=== PATIENT | female | born 1965 | race Two or more races ===

== ENCOUNTER 2024-03-15 14:21 | Outpatient (AMB) | payer MEDICAID, SELFPAY ==
--- NOTE | 2024-03-15 14:36 | A.OFFVIS_ITS ---
Vital Signs 03/15/24 14:40 Height 4 ft 9 in Weight 198 lb 2 oz BMI 42.9 BP 142/90 H Blood Pressure Location Rt brachial Position Sitting Respiration 16 Pulse 74 Pulse Source Pulse Oximeter Pulse Oximetry (%) 96 Oxygen Delivery Method Room Air Intake Visit Reasons: 3/1LVM+Let BDF-Yalgtc-Cowbal Neuropathy-Conf Intake Note: Pt presents for new pt evaluation for severe neuropathy. [employer] Required: No Allergies No Known Allergies Allergy (Verified 03/15/24 14:37) Medication List - Last Reconciled 03/15/24 by Desiree Pandya MD albuterol sulfate 90 mcg/actuation 1 inh inhalation Q4-6H PRN anastrozole 1 mg PO DAILY gabapentin 600 mg PO TID oxycodone 10 mg PO Q8H PRN HPI Comments Details: 59y/o left handed female comes for an urgent visit for evaluation of neuropathy. she was diagnosed with Right breast cancer in Oct 2022 .she had surgery and started on chemo February 2023- Apr 2023 , radiation form Jun 2023 - Aug 2023. Chemo was AC-T (adriamycin, cyclophosphamide and taxol),after the second session she started having numbness ,tingling, burning pain in bilateral toes , feet and hands . she was trialed gabapentin , pregabalin and cymbalta and it does not help.she continued her chemo . she still has residual pain, burning , numbness paresthesias. she is oxycontin now. It is worse with rest and night. she denies back or neck pain PFSH Medical History (Updated 03/15/24 @ 15:05 by Desiree Pandya MD) Chemotherapy-induced neuropathy Ovarian cyst Depression Anxiety B12 deficiency Obesity Breast cancer Surgical History H/O total hysterectomy Hx of cholecystectomy Family History Father Diabetes Cancer Mother Diabetes Brain aneurysm Social History Alcohol intake: never Patient Tobacco Use Status: Never used Tobacco Use of substances other than those prescribed or required for medical reasons: No Physical Exam Vital Signs: Last Vital Signs Pulse 74 03/15/24 14:40 Resp 16 03/15/24 14:40 BP 142/90 H 03/15/24 14:40 Pulse Ox 96 03/15/24 14:40 Oxygen Delivery Method Room Air 03/15/24 14:40 BMI result Body Mass Index 42.9 Const General: cooperative and comfortable Nutritional Appearance: obese Orientation/consciousness: patient oriented x3 Eyes Pupils: Equal, round and reactive pupils present Neuro Other: decreased sensation - meghan below ankle and hands General: patient oriented x3, tone normal, moves all extremities and no focal motor deficits Cranial nerves: Yes Facial sensation intact/muscles of mastication intact, Yes Equal, round and reactive pupils present, Yes Bilaterally intact EOM present, Yes Nystagmus not present, Yes Normal facial strength present, Yes Midline tongue present, Yes Symmetric palate elevation present and Yes Ability to bilate rally elevate shoulders present Cognition (Neuro): normal cognition Gait exam (Neuro): Antalgic gait present Motor exam (neuro): 5/5 motor strength present throughout and Normal motor muscle tone present throughout Deep tendon reflexes (DTR's): Right triceps reflex intensity grade: 1+, Left triceps reflex intensity grade: 1+, Rt Biceps (C5, C6): 1+, Left biceps reflex intensity grade: 1+, Right brachioradialis reflex intensity grade: 0, Left brachioradialis reflex intensity grade: 0, Right patellar reflex intensity grade: 0 and Left patellar reflex intensity grade: 0 Assessment & Plan Assessment & Plan (1) Chemotherapy-induced neuropathy: Comment: AC-T induced with severe pain Code(s): G62.0 - Drug-induced polyneuropathy; T45.1X5A - Adverse effect of antineoplastic and immunosuppressive drugs, initial encounter Category: Medical Plan EMG NCS - LE I will check her Vit b12 B6 thiamine Vit D TSH etc Continue gabapentin 600mg tid I will trial her on venlafaxine XR 37.5 mg qhs Will consider trileptal , amitriptyline Refer to pain management Orders: Orders NE nerve conduction velocity Today G62.0 - Drug-induced polyneuropathy, T45.1X5A - Adverse effect of antineoplastic and immunosuppressive drugs, initial encounter Vitamin B12 and Folate Today G62.0 - Drug-induced polyneuropathy, T45.1X5A - Adverse effect of antineoplastic and immunosuppressive drugs, initial encounter TSH reflex Free T4 Today G62.0 - Drug-induced polyneuropathy, T45.1X5A - Adverse effect of antineoplastic and immunosuppressive drugs, initial encounter Vitamin B6 Today G62.0 - Drug-induced polyneuropathy, T45.1X5A - Adverse effect of antineoplastic and immunosuppressive drugs, initial encounter NE electromyogram (EMG) Today G62.0 - Drug-induced polyneuropathy, T45.1X5A - Adverse effect of antineoplastic and immunosuppressive drugs, initial encounter Referrals Pain Management Referral G62.0 - Drug-induced polyneuropathy, T45.1X5A - Adverse effect of antineoplastic and immunosuppressive drugs, initial encounter Medications: New venlafaxine ER (Effexor XR) 37.5 mg PO BEDTIME 30 caps 6RF Coding Level of Care Code New Pt Level 4 (47403) Diagnoses Chemotherapy-induced neuropathy G62.0; T45.1X5A
[2024-03-15 14:40] VITALS: BP 142/90; PULSE 74; RESP 16; O2SAT 96; BMI 42.9
== END 2024-03-15 15:17 | disposition home or self-care (01) ==
PROVIDERS: PCP Internal Medicine; Visit Provider Psychiatry & Neurology Neurology
DX: G62.0 Drug-induced polyneuropathy (principal); T45.1X5A Adverse effect of antineoplastic and immunosuppressive drugs, initial encounter
CPT/HCPCS: 99204

== ENCOUNTER → 2024-03-15 14:21 | Outpatient (BNVA) | payer MEDICAID, SELFPAY | PROVIDERS: PCP Internal Medicine; Visit Provider Psychiatry & Neurology Neurology | DX: G62.0 Drug-induced polyneuropathy (principal); T45.1X5A Adverse effect of antineoplastic and immunosuppressive drugs, initial encounter | CPT/HCPCS: 99202 ==

== ENCOUNTER 2024-03-25 13:01 | Outpatient (REF) | payer MEDICAID, SELFPAY ==
--- NOTE | 2024-03-25 13:04 | EMG_ITS ---
Chief complaint: History of right breast cancer status post chemo and radiation, started having numbness on her feet after 2nd course of chemo. Has hand numbness and pain as well. Reason for referral: Evaluate for neuropathy Referred by: Dr. Pandya Procedure done: Left upper extremity and right lower extremity Precautions and/or limitations: Difficulty tolerating the test. The limb temperature was monitored continuously and remained between 32-36 degrees C during the performance of the NCS. Nerve Conduction Studies Anti Sensory Summary Table ?Stim Site NR Onset (ms) Norm Onset (ms) Peak (ms) Norm Peak (ms) O-P Amp (?V) Norm O-P Amp Site1 Site2 Delta-0 (ms) Dist (cm) Gabriel (m/s) Norm Gabriel (m/s) Left Median Anti Sensory (2nd Digit) Wrist ? 1.9 3.0 <3.6 10.4 >10 Wrist 2nd Digit 1.9 14.0 74 Left Radial Anti Sensory (Thumb) Forearm ? 1.4 1.9 <3.1 18.3 Forearm Thumb 1.4 0.0 Left Sural Anti Sensory (Lat Mall) Calf NR <4.0 >5.0 Calf Lat Mall 14.0 Right Sural Anti Sensory (Lat Mall) Calf NR <4.0 >5.0 Calf Lat Mall 14.0 Left Ulnar Anti Sensory (5th Digit) Wrist ? 2.1 2.8 <3.7 16.4 >15.0 Wrist 5th Digit 2.1 14.0 67 Motor Summary Table ?Stim Site NR Onset (ms) Norm Onset (ms) O-P Amp (mV) Norm O-P Amp iAmp (mV) Amp (1st) (%) Site1 Site2 Delta-0 (ms) Dist (cm) Gabriel (m/s) Norm Gabriel (m/s) Left Median Motor (Abd Poll Brev) Wrist ? 2.8 <3.9 13.9 >4.5 15.5 100.0 Elbow Wrist 3.0 18.0 60 >45 Elbow ? 5.8 11.5 12.7 82.7 Right Peroneal Motor (Ext Dig Brev) Ankle ? 3.3 <4.0 2.1 >2.5 2.2 100.0 Ankle Ext Dig Brev 3.3 0.0 B Fib ? 8.8 1.2 1.1 57.1 B Fib Ankle 5.5 29.0 53 >40 Poplt ? 9.3 1.8 1.9 85.7 Poplt B Fib 0.5 5.0 100 >40 Right Tibial Motor (Abd Jane Brev) Ankle ? 3.8 <5 2.7 >2.5 3.4 100.0 Ankle Abd Jane Brev 3.8 0.0 Knee ? 9.9 1.3 1.7 48.1 Knee Ankle 6.1 35.0 57 >40 Left Ulnar Motor (Abd Dig Minimi) Wrist ? 2.4 <3.0 7.4 >5 8.9 100.0 B Elbow Wrist 2.6 16.5 63 >45 B Elbow ? 5.0 7.0 9.0 94.6 A Elbow B Elbow 1.3 10.0 77 >45 A Elbow ? 6.3 6.4 8.2 86.5 EMG ?Side Muscle Nerve Root Ins Act Fibs Psw Amp Dur Poly Recrt Int Pat Comment Right AbdHallucis MedPlantar S1-2 Incr 1+ 1+ Nml Nml 0 Nml Complete Right AntTibialis Dp Br Peron L4-5 Nml Nml Nml Nml Nml 0 Nml Complete Right PostTibialis Tibial L5, S1 Nml Nml Nml Nml Nml 0 Nml Complete Right MedGastroc Tibial S1-2 Nml Nml Nml Nml Nml 0 Nml Complete Right VastusMed Femoral L2-4 Nml Nml Nml Nml Nml 0 Nml Complete FINDINGS: Right peroneal nerve showed normal distal latency, small amplitude and normal conduction velocity. Left tibial nerve showed normal distal latency, borderline normal amplitude and normal conduction velocity. Bilateral sural nerves showed absent response. All other nerves tested on left upper extremity were within normal. Concentric needle EMG was performed in selected muscles of the right lower extremity. Study revealed signs of electric abnormalities as shown in the table above. Right AH showed increased insertional activity, PSWs and fibrillations. IMPRESSION: 1. This is an abnormal study. 2. There is electrodiagnostic evidence for distal sensorimotor axonal neuropathy. 3. There is no electrodiagnostic evidence for median neuropathy, ulnar neuropathy, brachial plexopathy, cervical radiculopathy, peroneal neuropathy, tibial neuropathy. lumbosacral plexopathy, or lumbar radiculopathy. Thank you for your kind referral. Beth Pena MD, [place] Board Certified, [place] Board [employer] and [employer] (ABPMR) Board Certified, [place] Board [employer] Electro[employer]ostic [employer] (ABEM) [place] [id number] [facility]
[2024-03-25 15:58] LABS: Folate 12.3 ng/mL (> or = 4.0); Vitamin B12 487 pg/mL (200-900)
[2024-03-31 15:18] LABS: Vitamin B6 2.7 ng/mL (2.1-21.7)
== END 2024-03-25 13:02 | disposition home or self-care (01) ==
LOC: HO.NEURO 13:01
PROVIDERS: PCP Internal Medicine; Visit Provider Psychiatry & Neurology Neurology
DX: G62.0 Drug-induced polyneuropathy (principal); T45.1X5A Adverse effect of antineoplastic and immunosuppressive drugs, initial encounter
CPT/HCPCS: 36415; 82607; 82746; 84207; 84443; 95886; 95911

== ENCOUNTER → 2024-03-25 13:04 | Outpatient (BNV) | payer MEDICAID, SELFPAY | PROVIDERS: PCP Internal Medicine; Visit Provider Physical Medicine & Rehabilitation | DX: G62.89 Other specified polyneuropathies (principal); R20.2 Paresthesia of skin | CPT/HCPCS: 95886; 95911 ==

== ENCOUNTER 2024-04-25 14:07 | Outpatient (AMB) | payer MEDICAID, SELFPAY ==
[2024-04-25 14:11] VITALS: BP 119/73; PULSE 93; O2SAT 97; BMI 43.1
--- NOTE | 2024-04-25 14:11 | MHC.OFFVIS ---
Vital Signs 04/25/24 14:11 Height 4 ft 9 in Weight 199 lb BMI 43.1 BP 119/73 Blood Pressure Location Lt brachial Position Sitting Pulse 93 Pulse Source Pulse Oximeter Pulse Oximetry (%) 97 Oxygen Delivery Method Room Air Intake Visit Reasons: Drug Induced Polyneuropathy Allergies No Known Allergies Allergy (Verified 04/25/24 14:15) HPI Comments Details: Jane is very pleasant 59 years old female who presents in my office with complains on severe intractable pain in bilateral hands in bilateral feet she reports pain today 07/07. This pain is considered to be secondary to treatment of the breast cancer she was diagnose in October of 2022. She received breast lumpectomy and axillary lymph node biopsy, after that she received radiation of the chest and chemotherapy. She was developing bilateral advanced polyneuropathy which results in sensation of pins and needles tingling stinging stabbing lancinating sensation and sensation of complete numbness in both hands and feet. She reports that she can not sleep normally because of her pain can not do activities of daily living, she can take care of herself but she can not function normally. 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 She is currently taking 15 mg of oxycodone several times a day up to 45 mg a day. She is prescribed 15 mg oxycodone every 4 hours. She attempted to treat her pain with gabapentin she was taking 600 mg t.i.d. and noticed no improvement. She tried Lyrica however Lyrica gave her burning sensation in the chest similar to what she experienced when she consumes shrimps. She takes Effexor (venlafaxine) for depression. She is not in chemotherapy now and on maintainer anti hormonal therapy with letrozole. She reports that she had DEXA scan for osteoporosis and was diagnose with advanced osteoporosis. She is taking calcium and vitamin-D as well as intravenous injection to treat osteoporosis once a week. Her past medical history significant for asthma gallstones and arthritis. Her past surgical history significant for lumpectomy and lymph node biopsy. Social history she is working individual full-time, she does not smoke cigarettes , does not drink alcohol, she does not drink caffeinated beverages, she denies recreational drugs. [facility], [facility] Medical History (Updated 04/25/24 @ 16:03 by Greg Friend MD) Chemotherapy-induced neuropathy Ovarian cyst Depression Anxiety B12 deficiency Obesity Breast cancer Surgical History H/O total hysterectomy Hx of cholecystectomy Family History Father Diabetes Cancer Mother Diabetes Brain aneurysm Social History Alcohol intake: never Patient Tobacco Use Status: Never used Tobacco Review of Systems Const All systems reviewed & are unremarkable except as noted in HPI and below ENT Reports Normal hearing present Neuro Reports Normal hearing present, Denies Abnormal speech present, Denies confusion and Denies Sensory deficit (Neuro) Psych Denies confusion Physical Exam Vital Signs: Last Vital Signs Pulse 93 04/25/24 14:11 BP 119/73 04/25/24 14:11 Pulse Ox 97 04/25/24 14:11 Oxygen Delivery Method Room Air 04/25/24 14:11 BMI result Body Mass Index 43.1 Const General: no acute distress; No confusion Orientation/consciousness: patient oriented x3 and No confusion Eyes General: appearance normal, both eyes and all related structures Pupils: Equal, round and reactive pupils present EOM: EOMs intact bilaterally Neck Neck: Yes full ROM Chest Chest palpation & inspection: normal inspection of the chest Resp Effort & Inspection: normal respiratory effort, able to speak in complete sentences, normal respiratory pattern, no audible wheezes and no cough Cardio Jugular venous distension: no JVD GI Inspection: Yes normal to inspection Neuro General: patient oriented x3, gait normal and No confusion Cranial nerves: Yes CN's II-XII intact bilaterally, Yes Equal, round and reactive pupils present, Yes Normal hearing present and Yes Ability to bilaterally elevate shoulders present Speech: No Abnormal speech present Gait exam (Neuro): Normal gait present Motor exam (neuro): 5/5 motor strength present throughout Sensory Exam: No Sensory deficit (Neuro) Extrem General: No pedal edema Psych Speech and movement: Normal speech and movement present Affect: normal affect Attitude: cooperative Thought process: Normal thought process present Thought content: Normal thought content present Insight: Good insight present (Psych) Judgement: Good judgement present (Psych) Results Reviewed Results Reviewed: EM. This is an abnormal study. 2. There is electrodiagnostic evidence for distal sensorimotor axonal neuropathy. 3. There is no electrodiagnostic evidence for median neuropathy, ulnar neuropathy, brachial plexopathy, cervical radiculopathy, peroneal neuropathy, tibial neuropathy. lumbosacral plexopathy, or lumbar radiculopathy. Assessment & Plan Assessment & Plan (1) Chemotherapy-induced neuropathy: Comment: AC-T induced with severe pain Code(s): G62.0 - Drug-induced polyneuropathy; T45.1X5A - Adverse effect of antineoplastic and immunosuppressive drugs, initial encounter Category: Medical (2) Breast cancer: Code(s): C50.919 - Malignant neoplasm of unspecified site of unspecified female breast Category: Medical (3) Chronic pain syndrome: Code(s): G89.4 - Chronic pain syndrome Category: Medical (4) Axonal sensorimotor neuropathy: Code(s): G62.89 - Other specified polyneuropathies Category: Medical Plan This is a cancer patient who suffers from locations of chemotherapy as axonal sensory motor neuropathy. She has intractable bilateral upper and bilateral lower extremity pain, the pain is intractable, very severe, she reports today on the background of taking venlafaxine 37 mg and oxycodone up to 60 mg a day pain 07/07, she reports that she feels pain relentless, prevents her from doing her job as the family preservation caseworker for the local [employer]. Unfortunately I do not believe that addition of the medications to her current regimen will be effective enough to help pain for this patient. She stated that somebody suggested to start Cymbalta to help her pain. However in combination with venlafaxine those 2 medications can cause serotonin syndrome. Also amitriptyline as it tricyclic antidepressant can not be combined with venlafaxine and or Cymbalta. She appears to be allergic to Lyrica and maximal doses of gabapentin do not alleviate her pain. I offered the patient to go for trial of spinal cord stimulator [employer] for thoracic positioned 1st and then cervical positioned 2nd to help her pain in bilateral feet and bilateral hands. Patient is reluctant to go for this procedures however she requested the brochure to read about [employer] SCS. Brochure was given to the patient. Patient is instructed to give us a call if she decides to go for [employer] trial SCS. She does not need to go for psychological evaluation is the current cancer patient. Patient Instructions: I here by testify that I spent 45 minutes in conversation with this patient as well as evaluating her prior studies and diagnostic workup as well as planning her care and organizing this note. Coding Level of Care Code New Pt Level 4 (12809) Diagnoses Chemotherapy-induced neuropathy G62.0; T45.1X5A Breast cancer C50.919 Chronic pain syndrome G89.4 Axonal sensorimotor neuropathy G62.89
== END 2024-04-25 15:09 | disposition home or self-care (01) ==
PROVIDERS: PCP Internal Medicine; Referring Provider Psychiatry & Neurology Neurology; Visit Provider Anesthesiology
DX: G62.0 Drug-induced polyneuropathy (principal); T45.1X5A Adverse effect of antineoplastic and immunosuppressive drugs, initial encounter; C50.919 Malignant neoplasm of unspecified site of unspecified female breast; G89.4 Chronic pain syndrome; G62.89 Other specified polyneuropathies
CPT/HCPCS: 99204

== ENCOUNTER → 2024-04-25 14:07 | Outpatient (BNVA) | payer MEDICAID, SELFPAY | PROVIDERS: PCP Internal Medicine; Referring Provider Psychiatry & Neurology Neurology; Visit Provider Anesthesiology | DX: G62.0 Drug-induced polyneuropathy (principal); T45.1X5A Adverse effect of antineoplastic and immunosuppressive drugs, initial encounter; C50.919 Malignant neoplasm of unspecified site of unspecified female breast; G89.4 Chronic pain syndrome | CPT/HCPCS: 99202 ==

== ENCOUNTER 2024-06-23 15:04 | Outpatient (AMB) | payer MEDICAID, SELFPAY ==
--- NOTE | 2024-06-23 15:12 | MHC.OFFVIS ---
Vital Signs 06/23/24 15:19 Height 4 ft 9 in Weight 204 lb 4 oz BMI 44.2 BP 128/100 H Blood Pressure Location Lt brachial Position Sitting Respiration 16 Pulse 102 H Pulse Source Pulse Oximeter Pulse Oximetry (%) 96 Oxygen Delivery Method Room Air Intake Visit Reasons: Discuss Alternate Options to SCS Intake Note: Patient comes in to discuss alternative option. She was accompanied by spouse. Reports pain 10/10. Allergies No Known Allergies Allergy (Verified 06/23/24 15:27) HPI Comments Details: Jane is back in my office with request for me to take over her current opioid prescription by her oncologist and increase her opioid doses. She is currently receives oxycodone 10 mg twice a day. She has to be on much higher doses of the opioids. Nevertheless this is not a trivial those. I explained to the patient that further increase of the opioid therapy doses may result in opioid induced hyperalgesia, increased sensation of pain, opioid addiction, and increased opioid tolerance. Unfortunately for her I do not think it will be appropriate to increase the doses of her opioids. I again offered this patient [employer] spinal cord stimulator. In my opinion this is a cancer patient and she does not need to go for a psychological evaluation. Can proceed right away with a trial. If the patient will be satisfied with the results of the trial only then we can perform the implant. The treatment of neuropathy which would be running local anesthetics for her since she is taking oral opioids. I discussed this with the patient and she agreed to think about it however she is generally very negative about any implantable devices. very pleasant 59 years old female who presents in my office with complains on severe intractable pain in bilateral hands in bilateral feet she reports pain today 10/10. This pain is considered to be secondary to treatment of the breast cancer she was diagnose in October of 2022. She received breast lumpectomy and axillary lymph node biopsy, after that she received radiation of the chest and chemotherapy. She was developing bilateral advanced polyneuropathy which results in sensation of pins and needles tingling stinging stabbing lancinating sensation and sensation of complete numbness in both hands and feet. She reports that she can not sleep normally because of her pain can not do activities of daily living, she can take care of herself but she can not function normally. 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 She is currently taking 15 mg of oxycodone several times a day up to 45 mg a day. She is prescribed 15 mg oxycodone every 4 hours. She attempted to treat her pain with gabapentin she was taking 600 mg t.i.d. and noticed no improvement. She tried Lyrica however Lyrica gave her burning sensation in the chest similar to what she experienced when she consumes shrimps. She takes Effexor (venlafaxine) for depression. She is not in chemotherapy now and on maintainer anti hormonal therapy with letrozole. She reports that she had DEXA scan for osteoporosis and was diagnose with advanced osteoporosis. She is taking calcium and vitamin-D as well as intravenous injection to treat osteoporosis once a week. Her past medical history significant for asthma gallstones and arthritis. Her past surgical history significant for lumpectomy and lymph node biopsy. Social history she is working individual full-time, she does not smoke cigarettes , does not drink alcohol, she does not drink caffeinated beverages, she denies recreational drugs. [facility] Medical History (Updated 04/25/24 @ 16:03 by Greg Friend MD) Chemotherapy-induced neuropathy Ovarian cyst Depression Anxiety B12 deficiency Obesity Breast cancer Surgical History H/O total hysterectomy Hx of cholecystectomy Family History Father Diabetes Cancer Mother Diabetes Brain aneurysm Social History Alcohol intake: never Patient Tobacco Use Status: Never used Tobacco Review of Systems Const All systems reviewed & are unremarkable except as noted in HPI and below ENT Reports Normal hearing present Neuro Reports Normal hearing present, Denies Abnormal speech present, Denies confusion and Denies Sensory deficit (Neuro) Psych Denies confusion Physical Exam Vital Signs: Last Vital Signs Pulse 102 H 06/23/24 15:19 Resp 16 06/23/24 15:19 BP 128/100 H 06/23/24 15:19 Pulse Ox 96 06/23/24 15:19 Oxygen Delivery Method Room Air 06/23/24 15:19 BMI result Body Mass Index 44.2 Const General: no acute distress; No confusion Orientation/consciousness: patient oriented x3 and No confusion Eyes General: appearance normal, both eyes and all related structures Pupils: Equal, round and reactive pupils present EOM: EOMs intact bilaterally Neck Neck: Yes full ROM Chest Chest palpation & inspection: normal inspection of the chest Resp Effort & Inspection: normal respiratory effort, able to speak in complete sentences, normal respiratory pattern, no audible wheezes and no cough Cardio Jugular venous distension: no JVD GI Inspection: Yes normal to inspection Neuro General: patient oriented x3, gait normal and No confusion Cranial nerves: Yes CN's II-XII intact bilaterally, Yes Equal, round and reactive pupils present, Yes Normal hearing present and Yes Ability to bilaterally elevate shoulders present Speech: No Abnormal speech present Gait exam (Neuro): Normal gait present Motor exam (neuro): 5/5 motor strength present throughout Sensory Exam: No Sensory deficit (Neuro) Extrem General: No pedal edema Psych Speech and movement: Normal speech and movement present Affect: normal affect Attitude: cooperative Thought process: Normal thought process present Thought content: Normal thought content present Insight: Good insight present (Psych) Judgement: Good judgement present (Psych) Assessment & Plan Assessment & Plan (1) Chemotherapy-induced neuropathy: Comment: AC-T induced with severe pain Code(s): G62.0 - Drug-induced polyneuropathy; T45.1X5A - Adverse effect of antineoplastic and immunosuppressive drugs, initial encounter Category: Medical (2) Breast cancer: Code(s): C50.919 - Malignant neoplasm of unspecified site of unspecified female breast Category: Medical (3) Chronic pain syndrome: Code(s): G89.4 - Chronic pain syndrome Category: Medical (4) Axonal sensorimotor neuropathy: Code(s): G62.89 - Other specified polyneuropathies Category: Medical Plan This is a cancer patient who suffers from locations of chemotherapy as axonal sensory motor neuropathy. She has intractable bilateral upper and bilateral lower extremity pain, the pain is intractable, very severe, she reports today on the background of taking venlafaxine 37 mg and oxycodone up to 60 mg a day pain 07/07, she reports that she feels pain relentless, prevents her from doing her job as the telehealth case manager for the local [employer] organization. Unfortunately I do not believe that addition of the medications to her current regimen will be effective enough to help pain for this patient. She stated that somebody suggested to start Cymbalta to help her pain. However in combination with venlafaxine those 2 medications can cause serotonin syndrome. Also amitriptyline as it tricyclic antidepressant can not be combined with venlafaxine and or Cymbalta. She appears to be allergic to Lyrica and maximal doses of gabapentin do not alleviate her pain. I again today offered the patient to go for trial of spinal cord stimulator [employer] for thoracic positioned 1st and then cervical positioned 2nd to help her pain in bilateral feet and bilateral hands. Patient is reluctant to go for this procedures however she requested the brochure to read about [employer] SCS. The patient is reluctant to go for the procedure. She promised me to think about it. If she decides to go for it I will schedule her for the trial right away. She is a cancer patient she does not need psychological evaluation. Patient Instructions: I here by testify that I spent 35 minutes in conversation with this patient as well as planning her care and organizing this note. Coding Level of Care Code Est Pt Level 4 (93210) Diagnoses Chemotherapy-induced neuropathy G62.0; T45.1X5A Breast cancer C50.919 Chronic pain syndrome G89.4 Axonal sensorimotor neuropathy G62.89
[2024-06-23 15:19] VITALS: BP 128/100; PULSE 102; RESP 16; O2SAT 96; BMI 44.2
== END 2024-06-23 15:40 | disposition home or self-care (01) ==
PROVIDERS: PCP Internal Medicine; Visit Provider Anesthesiology
DX: G62.0 Drug-induced polyneuropathy (principal); T45.1X5A Adverse effect of antineoplastic and immunosuppressive drugs, initial encounter; C50.919 Malignant neoplasm of unspecified site of unspecified female breast; G89.4 Chronic pain syndrome; G62.89 Other specified polyneuropathies
CPT/HCPCS: 99214

== ENCOUNTER → 2024-06-23 15:04 | Outpatient (BNVA) | payer MEDICAID, SELFPAY | PROVIDERS: PCP Internal Medicine; Visit Provider Anesthesiology | DX: G62.0 Drug-induced polyneuropathy (principal); C50.919 Malignant neoplasm of unspecified site of unspecified female breast; G89.4 Chronic pain syndrome; G62.89 Other specified polyneuropathies; T45.1X5A Adverse effect of antineoplastic and immunosuppressive drugs, initial encounter; X58.XXXA Exposure to other specified factors, initial encounter; Z79.891 Long term (current) use of opiate analgesic | CPT/HCPCS: 99212 ==